=== PATIENT | male | born 2000 | race Caucasian/White ===

== ENCOUNTER 2022-08-06 19:48 | Emergency (ER) | payer OTHER ==
[2022-08-06] MEDS ORDERED: guaiFENesin 200 MG TAB PO SCH (21:30)
[2022-08-06] MEDS ORDERED: Acetylcysteine 20% 200 MG/ML 30 ML VIAL INH SCH (22:15)
[2022-08-06] MEDS ORDERED: Hydrocortisone Sod Succ/PF 100 mg/2 ml Vial ONE (22:15)
[2022-08-06 23:06] LABS: Actual Bicarbonate (HCO3v) 21 mEq/L (22-28); Analyzer IN Cardio ER; Chloride (VBG) 100 mmol/L (98-106); Hemoglobin (Hb) 16.6 g/dL (13.2-17.3); Potassium (VBG) 3.94 mmol/L (3.70-5.30); Sodium 134.4 mmol/L (133-146); pH (venous) 7.48 (7.32-7.43)
[2022-08-06] MEDS ORDERED: Azithromycin 250 MG TAB ONE (23:07)
[2022-08-06] MEDS ORDERED: cefTRIAXone (ROCEPHIN) 2 GM VIAL ONE (23:07)
[2022-08-06 23:57] LABS: Hemoglobin 15.6 g/dL (14.0-18.0); Mean Corpuscular HGB CONC 33.6 g/dL (32.0-36.0); Mean Corpuscular Hemoglobin 30.2 pg (25.0-35.0); Mean Corpuscular Volume 89.7 fl (78.0-98.0); Mean Platelet Volume 8.8 fL (7.4-10.4); Platelet Count 150 10x3/uL (130-400); RBC Distribution Width 14.7 % (11.5-14.5); Red Blood Cell (RBC) Count 5.18 mill/uL (4.00-5.20); White Blood Cell (WBC) Count 14.4 10x3/uL (4.8-10.8)
[2022-08-07 00:17] LABS: ALT (SGPT) 76 U/L (8-55); AST (SGOT) 34 U/L (5-34); Albumin 3.8 g/dL (3.5-5.0); Alkaline Phosphatase 55 U/L (50-130); Anion Gap 16 mmol/L (10-20); BUN (Urea Nitrogen) 17 mg/dL (8.9-20.6); Bilirubin, Total 0.7 mg/dL (0.2-1.2); Calc. Creatinine Clearance 0 mL/min (70-130); Calcium 8.9 mg/dL (7.8-10.44); Carbon Dioxide 20 mmol/L (22-29); Chloride 102 mmol/L (98-107); Estimated GFR 160; Globulin 2.6 g/dL (2.4-3.5); Glucose 78 mg/dL (70-105); Potassium 3.9 mmol/L (3.5-5.1); Protein, Total 6.4 g/dL (6.0-8.3); Sodium 134 mmol/L (136-145)
[2022-08-07 00:21] LABS: SARS-CoV-2 NAA Rapid Test Not Detected (NotDetected)
[2022-08-07 00:25] LABS: Band 2 % (5-11); Lymphocytes 5 % (28-48); MDiff Complete? YES; Neutrophil 93 % (31-61)
== END 2022-08-07 00:10 | disposition short-term general hospital (02) ==
LOC: ERS 19:48
DX: J18.9 Pneumonia, unspecified organism (principal); Z20.822 Contact with and (suspected) exposure to COVID-19
CPT/HCPCS: 71045; 80053; 82805; 83605; 83880; 84484; 85025; 86140; 87040; 93005; 94640; 96365; 96375; J0132; J0696; J1720; J7611

== ENCOUNTER 2024-05-18 14:19 | Outpatient (CLI) | payer OTHER | END 2024-05-18 14:20 | disposition home or self-care (01) | LOC: RAD 14:19 | PROVIDERS: ATTEND Internal Medicine Critical Care Medicine | DX: R06.00 Dyspnea, unspecified (principal) | CPT/HCPCS: 71046 ==